=== PATIENT | male | born 1970 | race Caucasian/White ===

== ENCOUNTER 2016-11-08 12:27 | Emergency (ER) | payer OTHER ==
[~2016-11-08] VITALS: Ht 182.9 cm; Wt 105.0 kg
[2016-11-08 12:37] VITALS: BP 164/102; PULSE 76; RESP 18; TEMP 98.5; O2SAT 96
[2016-11-08] MEDS ORDERED: IBUPROFEN 800 MG TAB PO ONE (12:45)
[2016-11-08] MEDS ORDERED: CYCLOBENZAPRINE HCL 10 MG TAB PO ONE (12:45)
[2016-11-08] MEDS ORDERED: ONDANSETRON ODT 4 MG TAB PO ONE (13:00)
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
[2016-11-08] MEDS ORDERED: CYCL1TAB29 PO (14:55)
[2016-11-08] MEDS ORDERED: IBUP800T23 PO (14:55)
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
== END 2016-11-08 16:39 | disposition home or self-care (01) ==
LOC: NEPD 12:27
DX: M54.2 Cervicalgia (principal); M62.838 Other muscle spasm; V53.5XXA Driver of pick-up truck or van injured in collision with car, pick-up truck or van in traffic accident, initial encounter
CPT/HCPCS: 70450; 71010; 72125; 72128